=== PATIENT | male | born 1960 | race Hispanic/Latino ===

== ENCOUNTER 2017-03-11 06:20 | Day surgery (SDC) | payer BC ==
[2017-03-11 06:27] VITALS: BMI 29.6
--- NOTE | 2017-03-11 06:34 | ED PDOC ---
Arrival/HPI - General Time Seen by Provider: 03/11/17 06:24 - History of Present Illness Narrative History of Present Illness (Text): 56M hx of CABG and AVR c/o non-exertional non-rad anterior chest pain that started at 4am this morning and lasted about 1.5 hours before dissipating. no pain now. occasional sob recently. had an abnormal stress test 2 days ago. Past Medical History - Cardiac Hx Hypertension: Yes - Neurological Hx Paralysis: No - Hematological/Oncological Hx Blood Transfusions: Yes Hx Blood Transfusion Reaction: No - Musculoskeletal/Rheumatological Hx Musculoskeletal Disorders: No - Psychiatric Hx Substance Use: No - Surgical History Hx Coronary Artery Bypass Graft: Yes (AVR x 2; CABG x2) - Anesthesia Hx Anesthesia Reactions: No Hx Malignant Hyperthermia: No Family/Social History Family/Social History: Other (nc) Hx Alcohol Use: Yes (SOCIALLY) Hx Substance Use: No Allergies/Home Meds Allergies/Adverse Reactions: Allergies ragweed pollen Allergy (Verified 03/11/17 06:26) CONGESTION Home Medications: Home Meds Medication Instructions Recorded Confirmed Aspirin [Ecotrin] 81 mg PO DAILY 03/09/17 03/11/17 Atorvastatin [Lipitor] 40 mg PO DAILY 03/09/17 03/11/17 Metoprolol Succinate [Metoprolol 100 mg PO DAILY 03/09/17 03/11/17 Succinate Xl] Torsemide [Demadex] 20 mg PO DAILY 03/09/17 03/11/17 amLODIPine [Norvasc] 10 mg PO DAILY 03/09/17 03/11/17 cloNIDine 0.1 mg/24 hr [catapres 1 patch TOP Q7D 03/09/17 03/11/17 TTS1 0.1 mg/24 hr] cloNIDine [clonidine HCl] 0.1 mg PO BID 03/09/17 03/11/17 hydrALAZINE [hydralazine 100 mg PO TID 03/09/17 03/11/17 Hydrochloride] Isosorbide Dinitrate 40 mg PO TID 03/11/17 03/11/17 Review of Systems - Physician Review All systems were reviewed & negative as marked: Yes - Review of Systems Constitutional: absent: Fevers Respiratory: SOB. absent: Cough Cardiovascular: Chest Pain. absent: Syncope Gastrointestinal: absent: Abdominal Pain, Nausea, Vomiting Neurological: absent: Focal Weakness Physical Exam Vital Signs Reviewed: Yes Vital Signs Temp Pulse Resp BP Pulse Ox 03/12/17 11:10 70 150/95 H 03/12/17 10:01 72 174/110 H 03/12/17 06:23 98.4 F 74 19 153/84 H 98 03/12/17 06:00 71 03/12/17 02:00 68 03/12/17 00:01 98.3 F 74 18 146/82 96 03/11/17 22:00 71 03/11/17 20:08 98.5 F 80 20 142/71 03/11/17 18:07 98.3 F 70 18 146/87 03/11/17 16:38 70 16 140/78 03/11/17 16:08 70 16 147/80 03/11/17 15:53 70 16 134/84 03/11/17 15:38 69 19 151/92 H 03/11/17 14:53 69 19 145/98 H 03/11/17 14:38 69 19 127/83 03/11/17 14:23 68 16 127/83 03/11/17 11:45 68 16 154/84 H 03/11/17 11:15 16 154/84 H 03/11/17 11:00 98.0 F 68 17 132/80 03/11/17 10:15 69 19 140/80 03/11/17 09:31 72 16 137/81 03/11/17 06:26 98.0 F 63 18 117/73 96 Appearance: Positive for: Well-Appearing, Non-Toxic, Comfortable Pain Distress: None Mental Status: Positive for: Alert and Oriented X 3 - Systems Exam Head: Present: Atraumatic Pupils: Present: PERRL Mouth: Present: Moist Mucous Membranes Neck: Present: Normal Range of Motion Respiratory/Chest: Present: Clear to Auscultation. No: Respiratory Distress, Accessory Muscle Use Cardiovascular: Present: Regular Rate and Rhythm Abdomen: No: Tenderness, Distention Upper Extremity: Present: NORMAL PULSES Lower Extremity: No: Edema Neurological: Present: GCS=15, Motor Func Grossly Intact, Normal Sensory Function Skin: Present: Warm, Dry Medical Decision Making ED Course and Treatment: ecg- nsr 64, rbbb, no acute ischemia pt to director of cardiac cath lab - Lab Interpretations Lab Results: 03/12/17 05:45 03/12/17 05:45 Lab Results 03/12/17 05:45: WBC 5.6, RBC 3.94, Hgb 12.2 L, Hct 35.9 L, MCV 91.1, MCH 31.0, MCHC 34.0, RDW 14.3, Plt Count 155, MPV 9.1 03/12/17 05:45: Sodium 140, Potassium 3.3 L, Chloride 104, Carbon Dioxide 28, Anion Gap 11, BUN 28 H, Creatinine 1.9 H, Est GFR ( Amer) 45, Est GFR ( Non-Af Amer) 37, Random Glucose 112 H, Calcium 8.8, Total Bilirubin 0.5, AST 22 , ALT 31, Alkaline Phosphatase 103, Total Protein 6.7, Albumin 3.8, Globulin 2.9 , Albumin/Globulin Ratio 1.3 03/11/17 08:00: Blood Type Confirm O POSITIVE 03/11/17 07:30: Blood Type O POSITIVE, Antibody Screen Negative, BBK History Checked No verified bt 03/11/17 07:30: PT 10.4, INR 0.96, APTT 27.7 03/11/17 06:45: Sodium 143, Potassium 3.8, Chloride 106, Carbon Dioxide 27, Anion Gap 14, BUN 32 H, Creatinine 2.3 H, Est GFR ( Amer) 36, Est GFR ( Non-Af Amer) 30, Random Glucose 97, Calcium 9.0, Total Bilirubin 0.5, AST 27, ALT 32, Alkaline Phosphatase 110, Troponin I 0.05, Total Protein 6.9, Albumin 3.9, Globulin 3.0, Albumin/Globulin Ratio 1.3 03/11/17 06:45: WBC 5.3, RBC 4.17, Hgb 12.9 L, Hct 38.1 L, MCV 91.4, MCH 30.9, MCHC 33.9, RDW 14.5, Plt Count 187, MPV 9.2, Gran % 64.1, Lymph % (Auto) 17.4 L , [place] % (Auto) 14.5 H, Eos % (Auto) 3.6, Baso % (Auto) 0.4, Gran # 3.40, Lymph # 0.9 L, [place] # 0.8 H, Eos # 0.2, Baso # 0.02 03/11/17 06:30: Triglycerides 323 H, Cholesterol 150, LDL Cholesterol Direct 63 , HDL Cholesterol 44 - RAD Interpretation Radiology Orders: 03/11/17 06:29 CHEST PORTABLE [RAD] Stat - Medication Orders Current Medication Orders: Discontinued Medications Acetaminophen (Tylenol 325mg Tab) 975 mg PO STAT STA Stop: 03/11/17 21:00 Last Admin: 03/11/17 21:26 Dose: 975 mg Re-Assess: MAR Pain/Vitals Document 03/11/17 22:26 CDL (Rec: 03/12/17 00:17 CDL [facility] [id number][place] Pain Reassessment Is This A Pain ReAssessment? Yes Sleep Is patient sleeping during reassessment? Yes Acetylcysteine (Mucomyst 20% Inhal Mylene (30ml)) Confirm Administered Dose 30 ml .ROUTE .STK-MED ONE Stop: 03/11/17 06:56 Last Admin: 03/11/17 07:10 Dose: 3 ml Comments: for renal protection 3ml PO Aspirin (Aspirin Chewable) 324 mg PO STAT STA Stop: 03/11/17 06:30 Last Admin: 03/11/17 06:47 Dose: 324 mg Atropine Sulfate (Atropine) Confirm Administered Dose 1 mg .ROUTE .STK-MED ONE Stop: 03/11/17 08:45 Last Admin: 03/11/17 11:03 Dose: Atropine Sulfate (Atropine) Confirm Administered Dose 1 mg .ROUTE .STK-MED ONE Stop: 03/11/17 09:50 Last Admin: 03/11/17 11:03 Dose: Bivalirudin (Angiomax) Confirm Administered Dose 250 mg IV .STK-MED ONE Stop: 03/11/17 08:46 Last Admin: 03/11/17 11:03 Dose: Clonidine HCl (Catapres) 0.1 mg PO BID [facility] Last Admin: 03/12/17 10:01 Dose: 0.1 mg Clopidogrel Bisulfate (Plavix) Confirm Administered Dose 600 mg .ROUTE .STK-MED ONE Stop: 03/11/17 07:28 Last Admin: 03/11/17 07:27 Dose: 600 mg Comments: 600mg po by domingo berry rn Clopidogrel Bisulfate (Plavix) 75 mg PO DAILY [facility] Last Admin: 03/12/17 09:55 Dose: 75 mg Fentanyl (Fentanyl) Confirm Administered Dose 100 mcg .ROUTE .STK-MED ONE Stop: 03/11/17 09:10 Last Admin: 03/11/17 09:14 Dose: 100 mcg Comments: 50mcgs given iv at 914am by jean lemons md 50mcgs given iv by domingo berry rn at 917am Re-Assess: CORNELIO Pain Assessment Document 03/11/17 10:14 (Rec: 03/11/17 12:23 [id number]) Pain Reassessment Is this a pain reassessment? No Presence of Pain Presence of Pain No Pain Scale Used Pain Scale Used Numeric Fentanyl (Fentanyl) Confirm Administered Dose 100 mcg .ROUTE .STK-MED ONE Stop: 03/11/17 09:17 Last Admin: 03/11/17 11:03 Dose: Hydralazine HCl (Apresoline) 100 mg PO TID [facility] Last Admin: 03/12/17 10:01 Dose: 100 mg Heparin Sodium (Porcine) (Heparin 1000 Units/500 Ml Ns) Confirm Administered Dose 1,500 mls @ ud IV .STK-MED ONE Stop: 03/11/17 08:44 Nitroglycerin/Dextrose (Nitroglycerin 50 Mg/250 Ml D5w) Confirm Administered Dose 50 mg in 250 mls @ ud IV .STK-MED ONE Stop: 03/11/17 09:30 Last Admin: 03/11/17 11:05 Dose: Sodium Bicarbonate 150 meq/ (Sodium Chloride) 1,150 mls @ 109 mls/hr IV .[id number] [facility] Stop: 03/11/17 15:00 Last Admin: 03/11/17 12:02 Dose: 109 mls/hr Sodium Chloride (Sodium Chloride 0.9%) 1,000 mls @ 100 mls/hr IV .Q10H [facility] Stop: 03/11/17 17:00 Last Admin: 03/11/17 12:04 Dose: 100 mls/hr Iodixanol (Visipaque) Confirm Administered Dose 150 ml IV .STK-MED ONE Stop: 03/11/17 08:45 Iodixanol (Visipaque 320 Mg/Ml 200 Ml) Confirm Administered Dose 200 ml IV .STK- MED ONE Stop: 03/11/17 08:45 Iohexol (Omnipaque 350mg/Ml 50 Ml) Confirm Administered Dose 50 ml .ROUTE .STK- MED ONE Stop: 03/11/17 09:32 Isosorbide Dinitrate (Isordil) 40 mg PO TID [facility] Last Admin: 03/12/17 09:55 Dose: 40 mg Lidocaine HCl (Lidocaine 2% 20ml Vial) Confirm Administered Dose 20 ml .ROUTE .[facility] ONE Stop: 03/11/17 08:43 Last Admin: 03/11/17 09:22 Dose: 9 ml Comments: to left groin Midazolam HCl (Versed Inj) Confirm Administered Dose 2 mg .ROUTE .[facility] ONE Stop: 03/11/17 09:10 Last Admin: 03/11/17 09:14 Dose: 2 mg Comments: 2mg iv given by khurram lemnos md. Midazolam HCl (Versed Inj) Confirm Administered Dose 2 mg .ROUTE .[facility] ONE Stop: 03/11/17 09:16 Last Admin: 03/11/17 09:17 Dose: 2 mg Comments: 1mg iv by domingo berry rn at 0917 1mg iv by domingo berry rn at 0919 Midazolam HCl (Versed Inj) Confirm Administered Dose 2 mg .ROUTE .[facility] ONE Stop: 03/11/17 09:25 Last Admin: 03/11/17 09:24 Dose: 2 mg Comments: 1mg iv by domingo berry rn at 0924 1mg iv by domingo berry rn at 0936 Midazolam HCl (Versed Inj) Confirm Administered Dose 2 mg .ROUTE .[facility] ONE Stop: 03/11/17 09:38 Last Admin: 03/11/17 11:08 Dose: 2 mg Comments: returned Phenylephrine HCl (Phenylephrine Inj) Confirm Administered Dose 10 mg .ROUTE .[facility] ONE Stop: 03/11/17 08:53 Last Admin: 03/11/17 11:06 Dose: Potassium Chloride (Potassium Chloride Oral Soln) 30 meq PO STAT STA Stop: 03/12/17 09:32 Last Admin: 03/12/17 09:55 Dose: 30 meq Sodium Bicarbonate (Sodium Bicarbonate (8.4%) 50 Meq Syringe) Confirm Administered Dose 200 meq .ROUTE .[facility] ONE Stop: 03/11/17 06:55 Last Admin: 03/11/17 06:54 Dose: 175 meq Comments: 45ml bolus 130meq added to d5 W at 109ml/s HR Disposition/Present on Arrival - Present on Arrival Any Indicators Present on Arrival: No - Disposition Have Diagnosis and Disposition been Completed?: Yes Diagnosis: Chest pain Disposition Time: 06:32 Condition: STABLE
[2017-03-11] MEDS ORDERED: Sodium Bicarbonate (8.4%) 50 Meq Syringe ONE (06:54)
[2017-03-11] MEDS ORDERED: Acetylcysteine 20% Inhal Sol (30ml) ONE (06:55)
[2017-03-11 07:06] LABS: ALB/GLOB RATIO 1.3 (1.1-1.8); BILIRUBIN,TOTAL 0.5 mg/dL (0.2-1.3); POTASSIUM 3.8 mmol/L (3.6-5.0); TOTAL PROTEIN 6.9 g/dL (5.8-8.3)
[2017-03-11 07:09] LABS: BASO # 0.02 K/mm3 (0.0-2.0); BASO % 0.4 % (0.0-3.0); EOS # 0.2 (0.0-0.7); EOS % 3.6 % (1.5-5.0); GRAN # 3.4 (1.4-6.5); GRAN % 64.1 % (50.0-68.0); HEMATOCRIT 38.1 % (42.0-52.0); LYMPH # 0.9 (1.2-3.4); LYMPH % 17.4 % (22.0-35.0); MEAN CELL VOLUME 91.4 fl (80.0-105.0); MEAN CORPUSCULAR HEMOGLOBIN 30.9 pg (25.0-35.0); MEAN CORPUSCULAR HGB CONC 33.9 g/dl (31.0-37.0); MEAN PLATELET VOLUME 9.2 fl (7.0-11.0); MONO # 0.8 (0.1-0.6); MONO % 14.5 % (1.0-6.0); RED CELL DISTRIBUTION WIDTH 14.5 % (11.5-14.5); WHITE BLOOD COUNT 5.3 10^3/ul (4.5-11.0)
[2017-03-11 07:17] LABS: TROPONIN I 0.05 ng/mL
[2017-03-11 07:43] LABS: CHOLESTEROL 150 mg/dL (130-200)
--- NOTE | 2017-03-11 07:51 | RAD ---
HISTORY: cp COMPARISON: No prior. FINDINGS: LUNGS: No active pulmonary disease. PLEURA: No significant pleural effusion identified, no pneumothorax apparent. CARDIOVASCULAR: Cardiac silhouette appears prominent. The patient status post median sternotomy. No pulmonary derangement identified. OSSEOUS STRUCTURES: No significant abnormalities. VISUALIZED UPPER ABDOMEN: Normal. OTHER FINDINGS: None. IMPRESSION: Median sternotomy. Cardiac silhouette appears prominent. No definite active CHF pattern appreciated at this time.
[2017-03-11 08:08] LABS: INR 0.96 (0.93-1.08); PARTIAL THROMBOPLASTIN TIME 27.7 Seconds (23.7-30.8)
[2017-03-11] MEDS ORDERED: Lidocaine 2% Inj (20ml) ONE (08:42)
[2017-03-11] MEDS ORDERED: Iodixanol 320 mg/ml 150 ml Bottle IV ONE (08:44)
[2017-03-11] MEDS ORDERED: Iodixanol 320 MG/ML 200 ML BOTTLE IV ONE (08:44)
[2017-03-11] MEDS ORDERED: Phenylephrine 10 mg/ml Inj ONE (08:52)
[2017-03-11] MEDS ORDERED: Midazolam 2 MG/2 ML VIAL ONE ×4 (09:09→09:37)
[2017-03-11] MEDS ORDERED: Nitroglycerin 50mg in D5W 0 MG/0 ML BOTTLE IV ONE (09:29)
[2017-03-11] MEDS ORDERED: Iohexol 350mgl/ml 50 ML ONE (09:31)
[2017-03-11] MEDS ORDERED: Sodium Chloride 0.9% 1,000 ML IV SCH (10:15)
--- NOTE | 2017-03-11 11:29 | CARD ---
APPROVED REPORT EKG Measurement Heart [id number] OK [id number] <Conclusion> Normal sinus rhythm Right bundle branch block Abnormal ECG
--- NOTE | 2017-03-11 18:53 | CARDCATH ---
PROCEDURE DATE: 03/11/2017 HISTORY: The patient is a 56-year-old male who developed angina and presented to the emergency room this morning. 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 He also suffers from diabetes mellitus, hypertension, and hypercholesterolemia. He suffers from chronic renal insufficiency with a creatinine as an outpatient of 2.6 with a creatinine this morning of 2.3. Because of his ongoing symptoms at rest, the patient was brought up for emergency cardiac catheterization. PROCEDURE: Left heart catheterization with coronary artery and left ventriculogram with saphenous vein graft angiogram. The right femoral artery was cannulated with 6-[place] sheath. There were no complications. The findings on catheterization revealed no aortic insufficiency across the prosthetic valve. His [place] coronary arteries revealed left main artery that was unremarkable. The LAD revealed an 80%-90% stenosis in the proximal portion. In a large diagonal vessel, there was a 90% stenosis at its ostium. The circumflex artery was diffusely diseased with two 80%-90% lesions in the proximal and midportion as well as disease in the distal portion of the circumflex in the bifurcation. The RCA revealed diffuse atherosclerosis with a dominant vessel and revealed a 70% stenoses. Saphenous vein graft to the RCA was not found. The saphenous vein graft to the LAD provided good antegrade flow to the distal LAD. The diagonal vessel was not protected. Manual compression was used to close the femoral artery site. The patient tolerated the procedure well. SUMMARY: The procedure revealed triple-vessel CAD. No aortic insufficiency across the prosthetic valve. Occluded SVG to the RCA. Patent SVG to the LAD with a large diagonal vessel that was not protected. PLAN: Given these findings, I did not proceed to angioplasty given his baseline renal insufficiency. Instead the procedure was stopped before intervention was performed. I will discussed with the family bout options of coronary bypass surgery versus of multivessel PTCA. The risk of the surgery will be an issue given that this is his third operation. The risk of the angioplasty will predominately be due to his renal insufficiency. I have sent a copy of the film to Dr. Jensen, who is a cardiac thoracic surgeon at [facility]. We will we will maintain IV fluids over the next 24 hours and follow his renal function in the morning. ADDENDUM: It was the left groin that was accessed. Keegan Pratt MD
--- NOTE | 2017-03-11 20:35 | CP.PCM.PN ---
Subjective - Date & Time of Evaluation Date of Evaluation: 03/11/17 Time of Evaluation: 20:32 - Subjective Subjective: Patient was seen at bedside. He is s/p attempt for cardiac cath. Complains of lower back pain.Has back pain on & off for 10 years. Mild,not radiating. No numbness, No weakness. Medical record was reviewed. This 56 year old white male was scheduled for cardiac cath today. Has PMH of angina,DM II, HTN, HLD,chronic renal insufficiency, CABGx 2,AVR x2, dissecting aortic aneurism, multiple blood transfusions. Objective - Vital Signs/Intake and Output Vital Signs (last 24 hours): Temp Pulse Resp BP Pulse Ox 98.3 F 70 18 146/87 96 03/11/17 18:07 03/11/17 18:07 03/11/17 18:07 03/11/17 18:07 03/11/17 06:26 - Medications Medications: Current Medications Clonidine HCl (Catapres) 0.1 mg PO BID [facility] Last Admin: 03/11/17 17:56 Dose: 0.1 mg Hydralazine HCl (Apresoline) 100 mg PO TID [facility] Last Admin: 03/11/17 17:56 Dose: 100 mg Isosorbide Dinitrate (Isordil) 40 mg PO TID [facility] Last Admin: 03/11/17 17:56 Dose: 40 mg - Labs Labs: 03/11/17 06:45 03/11/17 06:45 PT 10.4 Seconds (9.9-11.8) 03/11/17 07:30 INR 0.96 (0.93-1.08) 03/11/17 07:30 APTT 27.7 Seconds (23.7-30.8) 03/11/17 07:30 Laboratory Last Values WBC 5.3 10^3/ul (4.5-11.0) 03/11/17 06:45 RBC 4.17 10^6/uL (3.5-6.1) 03/11/17 06:45 Hgb 12.9 g/dL (14.0-18.0) L 03/11/17 06:45 Hct 38.1 % (42.0-52.0) L 03/11/17 06:45 MCV 91.4 fl (80.0-105.0) 03/11/17 06:45 MCH 30.9 pg (25.0-35.0) 03/11/17 06:45 MCHC 33.9 g/dl (31.0-37.0) 03/11/17 06:45 RDW 14.5 % (11.5-14.5) 03/11/17 06:45 Plt Count 187 10^3/uL (120.0-450.0) 03/11/17 06:45 MPV 9.2 fl (7.0-11.0) 03/11/17 06:45 Gran % 64.1 % (50.0-68.0) 03/11/17 06:45 Lymph % (Auto) 17.4 % (22.0-35.0) L 03/11/17 06:45 [place] % (Auto) 14.5 % (1.0-6.0) H 03/11/17 06:45 Eos % (Auto) 3.6 % (1.5-5.0) 03/11/17 06:45 Baso % (Auto) 0.4 % (0.0-3.0) 03/11/17 06:45 Gran # 3.40 (1.4-6.5) 03/11/17 06:45 Lymph # 0.9 (1.2-3.4) L 03/11/17 06:45 [place] # 0.8 (0.1-0.6) H 03/11/17 06:45 Eos # 0.2 (0.0-0.7) 03/11/17 06:45 Baso # 0.02 K/mm3 (0.0-2.0) 03/11/17 06:45 PT 10.4 Seconds (9.9-11.8) 03/11/17 07:30 INR 0.96 (0.93-1.08) 03/11/17 07:30 APTT 27.7 Seconds (23.7-30.8) 03/11/17 07:30 Sodium 143 mmol/L (132-148) 03/11/17 06:45 Potassium 3.8 mmol/L (3.6-5.0) 03/11/17 06:45 Chloride 106 mmol/L (98-107) 03/11/17 06:45 Carbon Dioxide 27 mmol/L (21-33) 03/11/17 06:45 Anion Gap 14 (10-20) 03/11/17 06:45 BUN 32 mg/dL (7-21) H 03/11/17 06:45 Creatinine 2.3 mg/dL (0.5-1.4) H 03/11/17 06:45 Est GFR ( Amer) 36 03/11/17 06:45 Est GFR (Non-Af Amer) 30 03/11/17 06:45 Random Glucose 97 mg/dL (70-110) 03/11/17 06:45 Calcium 9.0 mg/dL (8.4-10.5) 03/11/17 06:45 Total Bilirubin 0.5 mg/dL (0.2-1.3) 03/11/17 06:45 AST 27 U/L (17-59) 03/11/17 06:45 ALT 32 U/L (7-56) 03/11/17 06:45 Alkaline Phosphatase 110 U/L (38-126) 03/11/17 06:45 Troponin I 0.05 ng/mL 03/11/17 06:45 Total Protein 6.9 g/dL (5.8-8.3) 03/11/17 06:45 Albumin 3.9 g/dL (3.0-4.8) 03/11/17 06:45 Globulin 3.0 gm/dL 03/11/17 06:45 Albumin/Globulin Ratio 1.3 (1.1-1.8) 03/11/17 06:45 Triglycerides 323 mg/dL (35-160) H 03/11/17 06:30 Cholesterol 150 mg/dL (130-200) 03/11/17 06:30 LDL Cholesterol Direct 63 mg/dL (0-129) 03/11/17 06:30 HDL Cholesterol 44 mg/dL (29-60) 03/11/17 06:30 Blood Type O POSITIVE 03/11/17 07:30 Blood Type Confirm O POSITIVE 03/11/17 08:00 Antibody Screen Negative 03/11/17 07:30 BBK History Checked No verified bt 03/11/17 07:30 - Constitutional Appears: Well, No Acute Distress - Head Exam Head Exam: ATRAUMATIC, NORMAL INSPECTION, NORMOCEPHALIC - Eye Exam Eye Exam: Normal appearance - ENT Exam ENT Exam: Normal External Ear Exam - Neck Exam Neck Exam: Normal Inspection - Respiratory Exam Respiratory Exam: NORMAL BREATHING PATTERN - Cardiovascular Exam Cardiovascular Exam: absent: JVD - GI/Abdominal Exam GI & Abdominal Exam: absent: Distended - Rectal Exam Rectal Exam: Deferred - Exam Additional comments: Deferred. - Extremities Exam Extremities Exam: Normal Inspection Additional comments: Left inguinal area has clean and dry dressing. No swelling. No tenderness. - Back Exam Back Exam: NORMAL INSPECTION. absent: CVA tenderness (L), CVA tenderness (R) - Neurological Exam Neurological Exam: Alert, Oriented x3 - Psychiatric Exam Psychiatric exam: Normal Affect, Normal Mood - Skin Skin Exam: Normal Color Assessment and Plan - Assessment and Plan (Free Text) Assessment: Low back pain. Angina. CABGx 2 AVR x2 HTN. HLD. Renal insufficiency. Blood transfusions Hx. Plan: Tylenol 975 mg PO now. Continue present management.
--- NOTE | 2017-03-11 20:57 | HP ---
HISTORY OF PRESENT ILLNESS: I was called by Dr. Pratt to take a look at him, status post catheterization. He has cerebral vessel disease. He also has a history of renal insufficiency and only to be watch overnight with IV fluids. This is 56-year-old man with nonexertional chest pain, who went for cardiac cath. He has cerebral vessel disease. He has long history of hypertension, blood transfusions. He had coronary artery bypass graft already, AVR x2, CABG x2. SOCIAL HISTORY: He drinks alcohol socially. No substance abuse. just ragweed pollen. MEDICATIONS: He is on Ecotrin, Lipitor, metoprolol, Demadex, Norvasc, Catapres, clonidine, hydralazine. REVIEW OF SYSTEMS: No acute vision changes or hearing changes. No sore throat. No neck pain. He had chest pain, which is better now. No shortness of breath. No abdominal pain. No nausea or vomiting. No problems with his extremities. The skin, for the most part, is intact. PHYSICAL EXAMINATION: VITAL SIGNS: 98 temperature, 63 pulse, 18 respiratory rate, 117/70 blood pressure, 96% O2 sat room air. GENERAL: He is well-appearing, nontoxic, comfortable, alert, oriented x3. No chest pain at this time. HEENT: Head is atraumatic and normocephalic. Extraocular muscles are intact. Pupils are equal and reactive to light. Throat is moist. NECK: Supple. HEART: Regular rate. LUNGS: Decreased breath sounds, but clear to auscultation. ABDOMEN: Soft, nontender. Positive bowel sounds. uro=old large left inguinal hernia EXTREMITIES: No edema. NEUROLOGIC: GCS is 15. Cranial nerves II through XII grossly intact. SKIN: Warm and dry. LYMPHATICS: Thyroid midline. No palpable or appreciable lymphadenopathy. LABORATORY DATA: He has a laboratory of 143 sodium, potassium 3.8, BUN 32, creatinine 2.3 elevated. He is on lots of IV fluid. GFR 30, sugar is 97,calcium 9, total bilirubin is 0.5, AST is 27, ALT is 32, alkaline phosphatase is 110. Troponin 0.05. Total protein 6.9, albumin 3.9, globulin 3, triglycerides high at 323, cholesterol is 150, LDL 63 and HDL 44. INR is 0.96. White count 5.3, hemoglobin 12.9, hematocrit 38.1, platelets 187. PLAN: Dr. Pratt will coming tomorrow and discharged him. Check labs tomorrow. Check his kidney function. He is currently on sodium bicarb and IV sodium chloride. We will make sure his kidneys get very flushed and hydrated over the night. Check his labs tomorrow. If he does well, he will be discharged tomorrow and eventually setup with Dr. Jensen for cardiothoracic surgery for triple bypass surgery. Iain Delarosa DO MTDD
[2017-03-12 06:08] LABS: ALB/GLOB RATIO 1.3 (1.1-1.8); BILIRUBIN,TOTAL 0.5 mg/dL (0.2-1.3); CALCIUM 8.8 mg/dL (8.4-10.5); POTASSIUM 3.3 mmol/L (3.6-5.0); TOTAL PROTEIN 6.7 g/dL (5.8-8.3)
[2017-03-12 06:18] LABS: HEMATOCRIT 35.9 % (42.0-52.0); MEAN CELL VOLUME 91.1 fl (80.0-105.0); MEAN PLATELET VOLUME 9.1 fl (7.0-11.0); RED CELL DISTRIBUTION WIDTH 14.3 % (11.5-14.5); WHITE BLOOD COUNT 5.6 10^3/ul (4.5-11.0)
[2017-03-12 06:24] VITALS: RESP 19; TEMP 98.4; O2SAT 98
[2017-03-12] MEDS ORDERED: Potassium Chloride 20 mEq/15 ml LIQ UD PO STA (09:31)
[2017-03-12 11:11] VITALS: BP 150/95; PULSE 70
--- NOTE | 2017-03-12 13:51 | PN ---
DATE: 03/12/2017 CARDIOLOGY FOLLOWUP NOTE SUBJECTIVE: The patient is ambulating without symptoms. PHYSICAL EXAMINATION VITAL SIGNS: Blood pressure is 153/84 with the heart rate in the 70s. NECK: Negative JVD. LUNGS: Without rales. HEART: Reveal S1, S2. SKIN: The left groin site is stable. LABORATORY DATA: The creatinine went from 2.3 on admission to 1.9 today. IMPRESSION 1. Multivessel coronary artery disease. 2. Unstable angina. 3. Renal insufficiency. 4. Hypercholesterolemia. 5. Obesity. 6. History of coronary artery bypass surgery. 7. History of aortic valve replacement. 8. History of dissecting aortic aneurysm repair. PLAN: After extensive discussion with the patient and his as well as a cardiac surgeon, Dr. Jensen in [facility], review of his clinical data as well as the catheterization yesterday would make a third open-heart surgery to high-risk. The risk of multi of stage PTCA with potential issues of renal toxicity would pose a lower risk than a third operation. I have discussed this with them in detail, they agreed, we will bring the patient back next week after he recovers from the dye load from his diagnostic cath for PTCA of the circumflex artery. Keegan Pratt MD
--- NOTE | 2017-03-13 07:40 | DS ---
Dr. Pratt came in and discharged him already. I am doing the discharge summary for him. He has did well with a cardiac cath, but now he needs to go for triple bypass surgery with Dr. Jensen. Dr. Pratt set that up with him. PHYSICAL EXAMINATION: VITAL SIGNS: Today were 98.4 temp, 70 pulse, 150/95 blood pressure, 19 respiratory rate, 98% sat on room air. MEDICATIONS: Apresoline, Catapres, Isordil, Plavix, potassium. LABORATORY DATA: He had blood tests of a 5.6 white count, 12.2 hemoglobin, 35.9 hematocrit with 155 platelets. 140 sodium. Potassium was low as 3.3, that is why the potassium was given. His BUN dropped to 28. His creatinine dropped to 1.9, which is good. Status post cath he is improving. He is told to drink more water. GFR 37, sugar was 112, calcium is 8.8. Total bili is 0.58. AST is 22, ALT is 31 and alk phos is 103. Troponin was 0.05 yesterday. Total protein 6.7, albumin is 3.8. ASSESSMENT AND PLAN: He has got followup with Dr. Pratt plus Dr. Jensen, gets scheduled for outpatient triple bypass surgery. Iain Delarosa DO
--- NOTE | 2017-03-25 16:23 | PN ---
DATE: 03/25/2017 CARDIOLOGY FOLLOWUP NOTE SUBJECTIVE: The patient received a dose of steroids yesterday for his gout. His gout is much improved. He is ambulating without symptoms. PHYSICAL EXAMINATION VITAL SIGNS: Blood pressure is 139/87 and the heart rate is in the 70s. NECK: Negative JVD. LUNGS: Without rales. HEART: Reveals S1 and S2. EXTREMITIES: Without edema. The left groin site reveals mild ecchymosis from his previous procedure. LABORATORY DATA: The hemoglobin is 12.7. Chemistries; the creatinine is down to 1.9 and the glucose is 136. IMPRESSION 1. Stable post percutaneous transluminal coronary angioplasty and stent of five lesions in the circumflex and diagonal vessel of the left anterior descending. 2. Renal insufficiency. 3. Diabetes mellitus. 4. Hypertension. 5. Hypercholesterolemia. 6. History of gout. 7. History of coronary artery bypass surgery. 8. History of aortic valve replacement. PLAN: Given these findings, the patient is doing well post procedure. The patient can be discharged today. The patient will need to be on FEN instead of Plavix, given his insensitivity to Plavix. Follow up and instructions have been given to the patient in detail. Keegan Pratt MD
== END 2017-03-12 11:27 | disposition home or self-care (01) ==
LOC: ED 06:20 → CATH 08:29 → 2RSO 10:50 → CATH 03-12 11:27
PROVIDERS: ATTEND Internal Medicine Cardiovascular Disease
DX: I25.110 Atherosclerotic heart disease of native coronary artery with unstable angina pectoris (principal); E78.00 Pure hypercholesterolemia, unspecified; N18.9 Chronic kidney disease, unspecified; E11.22 Type 2 diabetes mellitus with diabetic chronic kidney disease; I12.9 Hypertensive chronic kidney disease with stage 1 through stage 4 chronic kidney disease, or unspecified chronic kidney disease; M54.5 Low back pain; E78.5 Hyperlipidemia, unspecified; E66.9 Obesity, unspecified; Z68.29 Body mass index [BMI] 29.0-29.9, adult; Z95.1 Presence of aortocoronary bypass graft; Z95.2 Presence of prosthetic heart valve; Z79.82 Long term (current) use of aspirin
CPT/HCPCS: 36415; 71010; 80053 ×2; 80061; 84484; 85025; 85027; 85610; 85730; 86850; 86900; 93005; 93454; 93567; 99152; 99285; C1769; C2629; J1644; J2250; J3010; J7030 ×2; J7040; Q9967

== ENCOUNTER 2017-03-24 05:50 | Day surgery (SDC) | payer BC ==
[2017-03-24 05:51] VITALS: BMI 30.5
--- NOTE | 2017-03-24 06:01 | ED PDOC ---
Arrival/HPI - General Chief Complaint: Chest Pain Time Seen by Provider: 03/24/17 05:52 Historian: Patient - History of Present Illness Narrative History of Present Illness (Text): 03/24/17 06:00 Jimi Izquierdo is a 56 year old male, whose past medical history includes cerebral vessel disease, renal insufficiency, CABG, aortic valve replacement, and hypertension, who presents to the Emergency department complaining of chest pain. Patient states he began experiencing mid-sternal chest pain with some radiation to his shoulder at 21:00 yesterday evening. Patient states he did not take medication for pain. Patient recently underwent a cardiac catheterization on 03/11/2017. Patient denies any shortness of breath, nausea, vomiting, neck pain, headache, dizziness, or any other complaints. PMD: Dr. Wang Commutator Assembler: Dr. Pratt Time/Duration: Other (21:00 yesterday) Symptom Onset: Gradual Symptom Course: Unchanged Activities at Onset: Light Context: Home Past Medical History - Provider Review Nursing Documentation Reviewed: Yes - Cardiac Hx Hypertension: Yes - Pulmonary Hx Respiratory Disorders: No - Neurological Hx Paralysis: No - HEENT Hx HEENT Disorder: No - Renal Hx Renal Disorder: No - Endocrine/Metabolic Hx Endocrine Disorders: No - Hematological/Oncological Hx Blood Transfusions: Yes Hx Blood Transfusion Reaction: No - Integumentary Hx Dermatological Disorder: No - Musculoskeletal/Rheumatological Hx Musculoskeletal Disorders: No - Gastrointestinal Hx Gastrointestinal Disorders: No - Genitourinary/Gynecological Hx Genitourinary Disorders: No - Psychiatric Hx Anxiety: Yes Hx Substance Use: No - Surgical History Hx Coronary Artery Bypass Graft: Yes (AVR x 2; CABG x2) - Anesthesia Hx Anesthesia Reactions: No Hx Malignant Hyperthermia: No Family/Social History - Physician Review Nursing Documentation Reviewed: Yes Family/Social History: Unknown Family HX Smoking Status: Never Smoked Hx Alcohol Use: Yes (SOCIALLY) Hx Substance Use: No Allergies/Home Meds Allergies/Adverse Reactions: Allergies ragweed pollen Allergy (Verified 03/11/17 06:26) CONGESTION Home Medications: Home Meds Medication Instructions Recorded Confirmed Aspirin [Ecotrin] 81 mg PO DAILY 03/09/17 03/24/17 Atorvastatin [Lipitor] 40 mg PO DAILY 03/09/17 03/24/17 Metoprolol Succinate [Metoprolol 100 mg PO DAILY 03/09/17 03/24/17 Succinate Xl] Torsemide [Demadex] 20 mg PO DAILY 03/09/17 03/24/17 amLODIPine [Norvasc] 10 mg PO DAILY 03/09/17 03/24/17 cloNIDine 0.1 mg/24 hr [catapres 1 patch TOP Q7D 03/09/17 03/24/17 TTS1 0.1 mg/24 hr] cloNIDine [clonidine HCl] 0.1 mg PO BID 03/09/17 03/24/17 hydrALAZINE [hydralazine 100 mg PO TID 03/09/17 03/24/17 Hydrochloride] Isosorbide Dinitrate 40 mg PO TID 03/11/17 03/24/17 Prasugrel [Effient] 10 mg DAILY 03/25/17 03/25/17 Review of Systems - Physician Review All systems were reviewed & negative as marked: Yes - Review of Systems Constitutional: Normal. absent: Fevers Eyes: Normal ENT: Normal Respiratory: Normal. absent: SOB, Cough Cardiovascular: Chest Pain Gastrointestinal: Normal. absent: Abdominal Pain, Diarrhea, Nausea, Vomiting Genitourinary Male: Normal. absent: Dysuria, Frequency, Hematuria, Urinary Output Changes Musculoskeletal: Normal. absent: Back Pain, Neck Pain Skin: Normal. absent: Rash Neurological: Normal. absent: Headache, Dizziness Endocrine: Normal Hemo/Lymphatic: Normal Psychiatric: Normal Physical Exam Vital Signs Reviewed: Yes Vital Signs Temp Pulse Resp BP Pulse Ox 03/24/17 10:22 55 L 18 144/88 03/24/17 10:07 56 L 18 147/88 03/24/17 09:52 56 L 18 129/64 03/24/17 09:37 98.5 F 53 L 20 138/53 L 03/24/17 05:52 97.7 F 76 18 171/93 H 93 L Temperature: Afebrile Blood Pressure: Normal Pulse: Regular Respiratory Rate: Normal Appearance: Positive for: Well-Appearing, Non-Toxic, Comfortable Pain Distress: None Mental Status: Positive for: Alert and Oriented X 3 - Systems Exam Head: Present: Atraumatic, Normocephalic Pupils: Present: PERRL Extroacular Muscles: Present: EOMI Conjunctiva: Present: Normal Mouth: Present: Moist Mucous Membranes Neck: Present: Normal Range of Motion Respiratory/Chest: Present: Clear to Auscultation, Good Air Exchange. No: Respiratory Distress, Accessory Muscle Use Cardiovascular: Present: Regular Rate and Rhythm, Normal S1, S2. No: Murmurs Abdomen: Present: Normal Bowel Sounds. No: Tenderness, Distention, Peritoneal Signs Back: Present: Normal Inspection Upper Extremity: Present: Normal Inspection. No: Cyanosis, Edema Lower Extremity: Present: Normal Inspection. No: Edema Neurological: Present: GCS=15, CN II-XII Intact, Speech Normal Skin: Present: Warm, Dry, Normal Color. No: Rashes Psychiatric: Present: Alert, Oriented x 3, Normal Insight, Normal Concentration Medical Decision Making ED Course and Treatment: 03/24/17 06:01 Impression: 56 year old male complaining of chest pain since 21:00 yesterday evening. Plan: -- EKG -- Chest X-ray -- Labs, cardiac enzynes -- UA -- Reassess and disposition Prior Visits: Notes and results from previous visits were reviewed. On 03/11/2017, pt was seen in the Emergency department for chest pain. Pt was admitted to the hospital and underwent cardiac catheterization. Progress Notes: Reviewed EKG, NSR at 61 bpm. Sinus arrhythmia. RBBB. Non-specific ST/T wave changes. 03/24/17 06:[address] Pratt, who is aware and agrees with plan. Pt will be going to same day surgery for cardiac catheterization. - Lab Interpretations Lab Results: 03/25/17 06:40 03/25/17 06:40 Lab Results 03/25/17 06:40: WBC 9.1, RBC 4.12, Hgb 12.7 L, Hct 36.6 L, MCV 88.8, MCH 30.8, MCHC 34.7, RDW 13.7, Plt Count 195, MPV 8.9, Gran % 86.7 H, Lymph % (Auto) 6.4 L , [place] % (Auto) 6.6 H, Eos % (Auto) 0.2 L, Baso % (Auto) 0.1, Gran # 7.92 H, Lymph # 0.6 L, [place] # 0.6, Eos # 0.0, Baso # 0.01 03/25/17 06:40: Sodium 136, Potassium 3.6, Chloride 101, Carbon Dioxide 27, Anion Gap 12, BUN 35 H, Creatinine 1.9 H, Est GFR ( Amer) 45, Est GFR ( Non-Af Amer) 37, Random Glucose 136 H, Calcium 8.8 03/24/17 06:45: PT 11.3, INR 1.05, APTT 27.8 03/24/17 05:55: Sodium 143, Potassium 3.3 L, Chloride 102, Carbon Dioxide 30, Anion Gap 14, BUN 43 H, Creatinine 2.2 H, Est GFR ( Amer) 38, Est GFR ( Non-Af Amer) 31, Random Glucose 114 H, Calcium 9.3, Magnesium 2.1, Total Bilirubin 0.6, AST 35, ALT 46, Alkaline Phosphatase 100, Lactate Dehydrogenase 554, Total Creatine Kinase 39, Troponin I 0.09 D, Total Protein 7.5, Albumin 4.4, Globulin 3.1, Albumin/Globulin Ratio 1.4 03/24/17 05:55: WBC 10.1 D, RBC 4.55, Hgb 14.2 D, Hct 41.2 L, MCV 90.5, MCH 31.2, MCHC 34.5, RDW 14.2, Plt Count 226, MPV 9.0, Gran % 68.1 H, Lymph % (Auto ) 14.6 L, [place] % (Auto) 13.4 H, Eos % (Auto) 3.4, Baso % (Auto) 0.5, Gran # 6.86 H, Lymph # 1.5, [place] # 1.4 H, Eos # 0.3, Baso # 0.05 - RAD Interpretation Radiology Orders: 03/24/17 06:19 CHEST PORTABLE [RAD] Stat - EKG Interpretation Interpreted by ED Physician: Yes Type: 12 lead EKG - Medication Orders Current Medication Orders: Discontinued Medications Acetylcysteine (Mucomyst 20% Inhal Mylene (30ml)) Confirm Administered Dose 30 ml .ROUTE .STK-MED ONE Stop: 03/24/17 06:50 Last Admin: 03/24/17 07:20 Dose: 3 ml Comments: Administered PO as per Dr. Pratt Aspirin (Ecotrin) Confirm Administered Dose 81 mg PO .STK-MED ONE Stop: 03/24/17 06:50 Last Admin: 03/24/17 07:20 Dose: 81 mg Comments: Administered PO as per Dr. Pratt Aspirin (Ecotrin) 81 mg PO DAILY [facility] Last Admin: 03/25/17 09:21 Dose: 81 mg Atorvastatin Calcium (Lipitor) 40 mg PO DIN [facility] Last Admin: 03/24/17 18:06 Dose: 40 mg Bivalirudin (Angiomax) Confirm Administered Dose 250 mg IV .STK-MED ONE Stop: 03/24/17 07:41 Last Admin: 03/24/17 08:02 Dose: 250 mg Comments: 13.5ml bolus administered IV as per Dr. Pratt at 0802. 24.8ml/hr drip started at 0802. Bivalirudin (Angiomax) Confirm Administered Dose 250 mg IV .STK-MED ONE Stop: 03/24/17 08:46 Last Admin: 03/24/17 08:45 Dose: 250 mg Comments: Administered as per Dr. Pratt. Clonidine HCl (Catapres) 0.1 mg PO BID [facility] Last Admin: 03/25/17 09:22 Dose: 0.1 mg Eptifibatide (Integrilin Bolus) Confirm Administered Dose 20 mg IVP .STK-MED ONE Stop: 03/24/17 08:30 Last Admin: 03/24/17 08:31 Dose: 15.8 mg Comments: Administered IV as per Dr. Pratt. Eptifibatide (Integrilin Bolus) Confirm Administered Dose 20 mg IVP .STK-MED ONE Stop: 03/24/17 08:33 Last Admin: 03/24/17 08:41 Dose: 15.8 mg Comments: Administered IV as per Dr. Pratt. Fentanyl (Fentanyl) Confirm Administered Dose 100 mcg .ROUTE .STK-MED ONE Stop: 03/24/17 07:54 Last Admin: 03/24/17 07:54 Dose: 100 mcg Comments: 50mcg Administered IV by Dr. Pratt at 0754. 50mcg administered as per Dr. Pratt at 0759. Heparin Sodium (Porcine) (Heparin) Confirm Administered Dose 10,000 units .ROUTE .STK-MED ONE Stop: 03/24/17 07:42 Last Admin: 03/24/17 10:17 Dose: Hydrocortisone Sodium Succinate (Solu-Cortef) 200 mg IVP ONCE ONE Stop: 03/24/17 19:24 Last Admin: 03/24/17 20:05 Dose: 200 mg Heparin Sodium (Porcine) (Heparin 1000 Units/500 Ml Ns) Confirm Administered Dose 1,500 mls @ ud IV .STK-MED ONE Stop: 03/24/17 07:05 Nitroglycerin/Dextrose (Nitroglycerin 50 Mg/250 Ml D5w) Confirm Administered Dose 50 mg in 250 mls @ ud IV .STK-MED ONE Stop: 03/24/17 07:42 Last Admin: 03/24/17 10:21 Dose: Heparin Sodium (Porcine) (Heparin 1000 Units/500 Ml Ns) Confirm Administered Dose 500 mls @ ud IV .STK-MED ONE Stop: 03/24/17 08:15 Sodium Chloride (Sodium Chloride 0.9%) 1,000 mls @ 100 mls/hr IV .Q10H [facility] Stop: 03/24/17 18:00 Last Admin: 03/24/17 09:30 Dose: 100 mls/hr Iodixanol (Visipaque 320 Mg/Ml 100 Ml) Confirm Administered Dose 100 ml IV .STK- MED ONE Stop: 03/24/17 07:05 Last Admin: 03/24/17 10:08 Dose: Iodixanol (Visipaque 320 Mg/Ml 200 Ml) Confirm Administered Dose 200 ml IV .ST- MED ONE Stop: 03/24/17 07:05 Last Admin: 03/24/17 10:02 Dose: 200 ml Comments: Administered by Dr. Pratt prn throughout procedure. Iohexol (Omnipaque 350mg/Ml 50 Ml) Confirm Administered Dose 50 ml .ROUTE .STK- MED ONE Stop: 03/24/17 07:05 Last Admin: 03/24/17 08:00 Dose: 50 ml Comments: Administered by Dr. Pratt prn throughout procedure. Lidocaine HCl (Lidocaine 2% 20ml Vial) Confirm Administered Dose 20 ml .ROUTE .STK-MED ONE Stop: 03/24/17 07:05 Last Admin: 03/24/17 07:59 Dose: 8 ml Comments: Administered SC by Dr. Pratt. Metoprolol Succinate (Toprol Xl) 100 mg PO [facility] Last Admin: 03/25/17 07:47 Dose: 100 mg Midazolam HCl (Versed Inj) Confirm Administered Dose 2 mg .ROUTE .STK-MED ONE Stop: 03/24/17 07:54 Last Admin: 03/24/17 07:53 Dose: 2 mg Comments: Administered IV by Dr. Pratt. Midazolam HCl (Versed Inj) Confirm Administered Dose 2 mg .ROUTE .STK-MED ONE Stop: 03/24/17 07:57 Last Admin: 03/24/17 07:59 Dose: 2 mg Comments: 1mg administered as per Dr. Pratt at 0759. 1mg administered as per Dr. Pratt at 0803. Midazolam HCl (Versed Inj) Confirm Administered Dose 2 mg .ROUTE .STK-MED ONE Stop: 03/24/17 08:13 Last Admin: 03/24/17 08:13 Dose: 1 mg Comments: Administered IV as per Dr. Pratt. Oxycodone/Acetaminophen (Percocet 5/325 Mg Tab) 1 tab PO Q4H PRN PRN Reason: Pain, severe (8-10) Stop: 03/27/17 19:24 Last Admin: 03/25/17 00:40 Dose: 1 tab Phenylephrine HCl (Phenylephrine Inj) Confirm Administered Dose 10 mg .ROUTE .STK-MED ONE Stop: 03/24/17 07:42 Last Admin: 03/24/17 10:16 Dose: Potassium Chloride (K-Dur 20 Meq Er Tab) Confirm Administered Dose 20 meq PO .STK-MED ONE Stop: 03/24/17 07:12 Last Admin: 03/24/17 07:21 Dose: 20 meq Comments: Administered PO as per Dr. Pratt. Prasugrel (Effient) Confirm Administered Dose 10 mg .ROUTE .STK-MED ONE Stop: 03/24/17 08:54 Last Admin: 03/24/17 08:54 Dose: 10 mg Comments: Administered PO as per Dr. Pratt. Prasugrel (Effient) 10 mg PO DAILY [facility] Last Admin: 03/25/17 09:21 Dose: 10 mg Sodium Bicarbonate (Sodium Bicarbonate (8.4%) 50 Meq Syringe) Confirm Administered Dose 200 meq .ROUTE .STK-MED ONE Stop: 03/24/17 06:51 Last Admin: 03/24/17 07:21 Dose: 200 meq Comments: 45ml bolus administered IV as per Dr. Pratt at 0721. Drip @ 109ml/hr started at 0722. - Scribe Statement The provider has reviewed the documentation as recorded by the Nina Carpenter Provider Scribe Attestation: All medical record entries made by the Scribe were at my direction and personally dictated by me. I have reviewed the chart and agree that the record accurately reflects my personal performance of the history, physical exam, medical decision making, and the department course for this patient. I have also personally directed, reviewed, and agree with the discharge instructions and disposition. Disposition/Present on Arrival - Present on Arrival Any Indicators Present on Arrival: No History of DVT/PE: No History of Uncontrolled Diabetes: No Urinary Catheter: No History of Decub. Ulcer: No History Surgical Site Infection Following: None - Disposition Have Diagnosis and Disposition been Completed?: Yes Diagnosis: Chest pain Disposition: HOSPITALIZED Disposition Time: 06:15 Condition: GOOD
[2017-03-24 06:42] LABS: ALB/GLOB RATIO 1.4 (1.1-1.8); BASO # 0.05 K/mm3 (0.0-2.0); BASO % 0.5 % (0.0-3.0); BILIRUBIN,TOTAL 0.6 mg/dL (0.2-1.3); CALCIUM 9.3 mg/dL (8.4-10.5); EOS # 0.3 (0.0-0.7); EOS % 3.4 % (1.5-5.0); GRAN # 6.86 (1.4-6.5); GRAN % 68.1 % (50.0-68.0); HEMATOCRIT 41.2 % (42.0-52.0); LYMPH # 1.5 (1.2-3.4); LYMPH % 14.6 % (22.0-35.0); MAGNESIUM 2.1 mg/dL (1.7-2.2); MEAN CELL VOLUME 90.5 fl (80.0-105.0); MEAN CORPUSCULAR HEMOGLOBIN 31.2 pg (25.0-35.0); MEAN CORPUSCULAR HGB CONC 34.5 g/dl (31.0-37.0); MONO # 1.4 (0.1-0.6); MONO % 13.4 % (1.0-6.0); POTASSIUM 3.3 mmol/L (3.6-5.0); RED CELL DISTRIBUTION WIDTH 14.2 % (11.5-14.5); TOTAL PROTEIN 7.5 g/dL (5.8-8.3); WHITE BLOOD COUNT 10.1 10^3/ul (4.5-11.0)
[2017-03-24] MEDS ORDERED: Acetylcysteine 20% Inhal Sol (30ml) ONE (06:49)
[2017-03-24] MEDS ORDERED: Sodium Bicarbonate (8.4%) 50 Meq Syringe ONE (06:50)
[2017-03-24 06:53] LABS: TROPONIN I 0.09 ng/mL
[2017-03-24] MEDS ORDERED: Iodixanol 320 MG/ML 200 ML BOTTLE IV ONE (07:04)
[2017-03-24] MEDS ORDERED: Lidocaine 2% Inj (20ml) ONE (07:04)
[2017-03-24] MEDS ORDERED: Iodixanol 320 MG/ML 100 ML BOTTLE IV ONE (07:04)
[2017-03-24] MEDS ORDERED: Iohexol 350mgl/ml 50 ML ONE (07:04)
[2017-03-24] MEDS ORDERED: Potassium Chloride 20 mEq ER Tab PO ONE (07:11)
[2017-03-24 07:15] LABS: INR 1.05 (0.93-1.08); PARTIAL THROMBOPLASTIN TIME 27.8 Seconds (23.7-30.8)
[2017-03-24] MEDS ORDERED: Phenylephrine 10 mg/ml Inj ONE (07:41)
[2017-03-24] MEDS ORDERED: Nitroglycerin 50mg in D5W 0 MG/0 ML BOTTLE IV ONE (07:41)
[2017-03-24] MEDS ORDERED: Midazolam 2 MG/2 ML VIAL ONE ×3 (07:53→08:12)
[2017-03-24] MEDS ORDERED: Eptifibatide 20 mg/10mL Inj IVP ONE ×2 (08:29→08:32)
--- NOTE | 2017-03-24 08:48 | RAD ---
HISTORY: CP COMPARISON: No prior. FINDINGS: LUNGS: No active pulmonary disease. PLEURA: No significant pleural effusion identified, no pneumothorax apparent. CARDIOVASCULAR: Moderate cardiomegaly OSSEOUS STRUCTURES: Sternal wires VISUALIZED UPPER ABDOMEN: Normal. OTHER FINDINGS: None. IMPRESSION: No active disease.
[2017-03-24] MEDS ORDERED: Sodium Chloride 0.9% 1,000 ML IV SCH (10:15)
[2017-03-24] MEDS: Metoprolol Succinate 100 mg XL Tab PO SCH (10:46)
--- NOTE | 2017-03-24 10:49 | CARD ---
APPROVED REPORT EKG Measurement Heart [id number] <Conclusion> Normal sinus rhythm with sinus arrhythmia Right bundle branch block Minimal voltage criteria for LVH, may be normal variant Abnormal ECG
--- NOTE | 2017-03-24 14:13 | CARD ---
APPROVED REPORT EKG Measurement Heart [id number] <Conclusion> Sinus bradycardia Right bundle branch block Left ventricular hypertrophy with repolarization abnormality Abnormal ECG
--- NOTE | 2017-03-24 19:50 | CARDCATH ---
PROCEDURE DATE: 03/24/2017HISTORY The patient is a 56-year-old male with multiple cardiac risk factors with status post aortic valve replacement, status post coronary bypass surgery, who presents with unstable angina. The patient suffers from renal insufficiency. He underwent cardiac catheterization 2 weeks ago and was found to have triple vessel disease. He was sent for an evaluation by cardiac surgery in [facility] who felt that the risk of cardiac surgery was too high. There were plans for PTCA. The patient presented to the emergency room with recurrence of angina. Because of this, he was brought to the rn labor and delivery under other emergent conditions. PROCEDURE Left heart catheterization with coronary aortography followed by PTCA and stent of the circumflex artery as well as a PTCA and stent of diagonal vessel off the LAD. The patient was pretreated with aggressive IV hydration as well as IV bicarb. On the fluoroscopic guide, the 7-Georgian sheath was placed in the left femoral artery. Cardiac catheterization results revealed a 90% stenoses in the ostium of the large diagonal vessel. In addition, circumflex was diffusely diseased with 80% stenosis in the proximal portion, a long 90% stenoses in the midportion and two 90% stenosis in the distal bifurcation of the circumflex artery. The patient was started on intravenous Angiomax and given two doses of two doses of integument because of his subtherapeutic PRU. A 7-Georgian guiding catheter was placed in the ostium of left main artery. An 0.014 ATW wire was placed in the LAD into the diagonal vessel. A 2.5 balloon was utilized to predilate the lesion. A 2.5 x 12 mm drug-eluting stent was placed and deployed at 14 ounces of pressure. Repeat coronary aortography revealed an excellent result. The wire was then taken and brought down into the circumflex artery passed a multiple critical lesions. A second wire was used to place in the other critical branching vessel A 2.5 and a 3.0 balloon was utilized to predilate the proximal and mid lesion. A 2.5 balloon was utilized to dilate the superior branch of the distal circumflex artery. Three drug-eluting stents were placed in the circumflex artery has various sizes. Repeat coronary aortography revealed an excellent result with no residual stenosis and LEAH III flow. Angio-Seal was used to close the femoral artery site. The patient tolerated the procedure well. In summary, the procedure was an emergency cardiac cath and PTCA of three lesions in the circumflex artery, PTCA and stent of a critically diagonal vessel as well as PTCA of the superior branch of the distal circumflex artery. The patient is status post coronary bypass surgery as well as aortic valve replacement. The patient is a non-responder to Plavix was and was given FEN in the rn labor and delivery as well as IV Integrilin Given these findings, he will need to remain on FEN for at least a year and undergo a strict cardiac risk reduction program. We will consider bringing him back for an elective PTCA of an LAD through the saphenous vein graft. Keegan Pratt MD
[2017-03-24] MEDS: Oxycodone/Acetaminophen 5/325 mg Tab PO PRN (20:05)
[2017-03-25] MEDS: Oxycodone/Acetaminophen 5/325 mg Tab PO PRN (00:40)
[2017-03-25 01:38] VITALS: RESP 22
[2017-03-25 06:37] VITALS: TEMP 98.2; O2SAT 98
[2017-03-25 07:23] LABS: BASO # 0.01 K/mm3 (0.0-2.0); BASO % 0.1 % (0.0-3.0); EOS % 0.2 % (1.5-5.0); GRAN # 7.92 (1.4-6.5); GRAN % 86.7 % (50.0-68.0); HEMATOCRIT 36.6 % (42.0-52.0); LYMPH # 0.6 (1.2-3.4); LYMPH % 6.4 % (22.0-35.0); MEAN CELL VOLUME 88.8 fl (80.0-105.0); MEAN CORPUSCULAR HEMOGLOBIN 30.8 pg (25.0-35.0); MEAN CORPUSCULAR HGB CONC 34.7 g/dl (31.0-37.0); MEAN PLATELET VOLUME 8.9 fl (7.0-11.0); MONO # 0.6 (0.1-0.6); MONO % 6.6 % (1.0-6.0); RED CELL DISTRIBUTION WIDTH 13.7 % (11.5-14.5); WHITE BLOOD COUNT 9.1 10^3/ul (4.5-11.0)
[2017-03-25 07:33] LABS: CALCIUM 8.8 mg/dL (8.4-10.5); POTASSIUM 3.6 mmol/L (3.6-5.0)
[2017-03-25] MEDS: Metoprolol Succinate 100 mg XL Tab PO SCH (07:47)
[2017-03-25 09:23] VITALS: BP 158/89
[2017-03-25 10:18] VITALS: PULSE 55
--- NOTE | 2017-03-25 16:36 | CARD ---
APPROVED REPORT EKG Measurement Heart [id number] <Conclusion> Sinus bradycardia Right bundle branch block Abnormal ECG
== END 2017-03-25 11:44 | disposition home or self-care (01) ==
LOC: ED 05:50 → CATH 07:08 → 2RSO 09:27 → CATH 03-25 11:44
PROVIDERS: ATTEND Internal Medicine Cardiovascular Disease
DX: I25.110 Atherosclerotic heart disease of native coronary artery with unstable angina pectoris (principal); I45.10 Unspecified right bundle-branch block; Z95.1 Presence of aortocoronary bypass graft; N28.9 Disorder of kidney and ureter, unspecified; Z95.2 Presence of prosthetic heart valve
CPT/HCPCS: 36415; 71010; 80048; 80053; 82550; 83615; 83735; 84484; 85025 ×2; 85576; 85610; 85730; 93005 ×2; 99152; 99153; 99285; C1725 ×3; C1760; C1769; C1874 ×4; C1887 ×2; C1894; C9600; C9601; J0583; J1327; J1644; J1720; J2250; J3010; J7040 ×2; Q9967 ×2